=== PATIENT | female | born 1975 | race African-American/Black ===

== ENCOUNTER 2016-08-23 21:25 | Emergency (ER) | payer MEDICAID ==
[2016-08-23] MEDS ORDERED: CEFTRIAXONE 1 GM VIAL ONE (23:53)
[2016-08-24] MEDS ORDERED: Ibuprofen 400 MG TAB ONE (00:05)
== END 2016-08-24 00:26 | disposition home or self-care (01) ==
LOC: ER 21:25
DX: N39.0 Urinary tract infection, site not specified (principal); R31.9 Hematuria, unspecified; F17.200 Nicotine dependence, unspecified, uncomplicated
CPT/HCPCS: 71010; 81001; 82947; 87077; 87088; 87186; 87804; 87880; 96372